=== PATIENT | male | born 1980 | race Caucasian/White ===

== ENCOUNTER 2018-11-27 18:49 | Inpatient (IN) ==
[2018-11-27] MEDS ORDERED: METOCLOPRAMIDE HCL INJ 5 MG/ML 2 ML VIAL IV STA (19:06)
[2018-11-27] MEDS ORDERED: HYDROmorphone INJ 0.5 MG/0.5 ML SYR IV STA ×2 (19:06→20:37)
[2018-11-27] MEDS ORDERED: KETOROLAC TROMETHAMINE 15 MG/ML VIAL IV STA (19:06)
[2018-11-27] MEDS ORDERED: SODIUM CHLORIDE 0.9% 1000ML 1,000 ML IV SCH (19:15)
[2018-11-27 19:24] LABS: Basophils # (auto) 0.09 K/uL (0-0.2); Basophils % (auto) 0.8 %; Eosinophils # (auto) 0.23 K/uL (0-0.5); Eosinophils % (auto) 1.9 %; Hematocrit (blood only) 45.1 % (42-52); Hemoglobin 15.7 g/dL (14.0-18.0); Immature Granulocytes # (auto) 0.03 K/uL (0.00-0.02); Immature Granulocytes % (auto) 0.3 %; Lymphocytes # (auto) 2.44 K/uL (1.2-3.4); Lymphocytes % (auto) 20.6 %; Mean Corpuscular Hgb Conc 34.8 g/dL (32-36); Mean Corpuscular Volume 86.9 fL (80-100); Mean Platelet Volume 9.6 fL (7.4-10.4); Monocytes # (auto) 1.01 K/uL (0.11-0.59); Monocytes % (auto) 8.5 %; Neutrophils # (auto) 8.04 K/uL (1.4-6.5); Neutrophils % (auto) 67.9 %; Platelet Count 269 K/uL (130-400); RDW Coefficient of Variation 13.4 % (11.5-14.5); RDW Standard Deviation 42.6 fL (36.4-46.3); Red Blood Count 5.19 M/uL (4.7-6.1); White Blood Count 11.84 K/uL (4.8-10.8)
[2018-11-27 19:38] LABS: Appearance Urine Cloudy (Clear); Bacteria Urine Automated Negative (Negative); Bilirubin Urine Negative (Negative); Blood Urine 3+ (Negative); Cast Urine Automated 0 /lpf (0-5); Color Urine Orange; Glucose Urine UA Negative (Negative); Ketones Urine Negative (Negative); Leukocyte Esterase Urine Trace (Negative); Nitrite Urine Negative (Negative); Protein Urine Negative (Negative); RBC Urine Automated >30 /hpf (0-4); Specific Gravity Urine 1.024 (1.000-1.030); Urobilinogen Urine Negative (Negative); pH Urine 6.5 (4.5-7.5)
[2018-11-27 19:42] LABS: Albumin Level 4.3 gm/dl (3.4-5.0); Calcium 9.5 mg/dl (8.5-10.1); Creatinine Clr Calc Pharmacy 139.1 ml/min; Est GFR (African American) 93.4; Est GFR (Non-African American) 80.6; Potassium 3.8 mmol/L (3.5-5.1)
[2018-11-27 19:45] LABS: Albumin Globulin Ratio 1.3 (0.9-2); Bilirubin,Total 0.4 mg/dl (0.2-1); Globulin 3.3 gm/dl (2.5-4.0); Total Protein 7.6 gm/dl (6.4-8.2)
[2018-11-27] MEDS ORDERED: IOVERSOL 100ml IV PRN (20:13)
--- NOTE | 2018-11-27 20:23 | CT Scan Report ---
CT OF THE ABDOMEN AND PELVIS WITH CONTRAST CLINICAL HISTORY: Left flank pain. COMPARISON STUDY: CT of the abdomen and pelvis July 15, 2018. Renal ultrasound performed earlier t génesis. TECHNIQUE: Following IV administration of 95 mL of Optiray-320, axial images of the abdomen and pelvi s were obtained from the lung bases to the proximal femurs. Images were reviewed in the axial, sagitt al, and coronal planes. IV contrast was administered without complication. Automated exposure contro l was utilized for the study. A dose lowering technique was utilized adhering to the principles of A REMA. CT DOSE: 1757.41 mGy.cm FINDINGS: Lung bases are clear. A 4 mm proximal left ureteral calculus results in mild left hydroneph rosis. Left nephrogram is delayed. There is left perinephric fluid. No additional urinary calculi are identified. Fatty infiltration of the liver is noted. The spleen, adrenal glands and pancreas are no rmal. There is no biliary or pancreatic ductal dilatation. There is no evidence for a bowel obstructi on. No lymphadenopathy is present. The appendix is normal. No suspicious osseous lesions are present. IMPRESSION: 1. 4 mm proximal left ureteral calculus which results in mild left hydronephrosis with a delayed left nephrogram and perinephric fluid. No additional urinary calculi. 2. Fatty liver. Electronically signed by: Roddy Clark M.D. 11/27/2018 8:21 PM
[2018-11-27] MEDS ORDERED: ACETAMINOPHEN 500 MG TAB PO STA (20:37)
--- NOTE | 2018-11-27 22:01 | Emergency Department Note ---
Entered by Batsheva Abreu acting as a scribe for History of Present Illness General Chief complaint: Kidney Stone Stated complaint: KIDNEY STONES Source: patient Mode of arrival: ambulatory History of Present Illness Onset (ago): hour(s) (16) Location: left (flank) Radiation: abdomen Pain Consistency: + constant Maximum Pain Intensity: 10 Associated symptoms: + denies other symptoms (diarrhea) and + nausea/vomiting (+ nausea, - vomiting) The patient is a 38 year old male who presents to the Emergency Room with compl aints of constant left flank pain that started around 0300 this morning. He notes the pain radiates to his abdomen. He rates his pain a 10/10 in severity. The patient states his pain subsided until about 1600 this afternoon. The patient was seen in the ED earlier this morning. He notes the nausea medication has not given him any relief of his nausea. He reports there is blood in his urine. He denies any diarrhea. He reports a history of kidney stones, but notes this one is worse. Home Medications Home Medications Medication Instructions Recorded Confirmed Type escitalopram oxalate 10 mg PO DAILY 07/15/18 11/27/18 History cefdinir 300 mg PO BID 10 Days #20 cap 11/27/18 11/27/18 Rx ondansetron 4 mg PO Q6H PRN #12 tab 11/27/18 11/27/18 Rx oxycodone 5 - 10 mg PO Q6H #15 tab 11/27/18 11/27/18 Rx tamsulosin [Flomax] 0.4 mg PO DAILY #7 cap 11/27/18 11/27/18 Rx Allergies Allergy/AdvReac Type Severity Reaction Status Date / Time morphine Allergy Unknown REDNESS Verified 11/27/18 03:59 [id number] Allergy Unknown Unknown Uncoded 07/15/18 21:09 Past Med/Surg History Medical History Kidney stone (Resolved) Social History Preferred Language: Nigerien Feels Safe at Home: Yes Smoking Status: Former smoker Review of Systems See HPI for pertinent positives & negatives. and A total of 10 systems reviewed and were otherwise negative Physical Exam Vital Signs Vital Signs - 24 hr 11/27/18 18:58 11/27/18 20:32 Temperature 37.3 C Temperature Source Oral Sepsis Recent Fever Within 48 Hours No Sepsis New/Unexplained Change in Mental Status No Sepsis Action Taken by Nursing No Action Required Pulse Rate 77 Pulse Rate [Right Finger] 74 Respiratory Rate 18 17 Blood Pressure 180/110 H Blood Pressure [Right Arm] 151/91 H Blood Pressure Mean 133 Blood Pressure Mean [Right Arm] 111 Blood Pressure Position Sitting Pulse Oximetry 100 93 Oxygen Delivery Method Room Air GENERAL: Awake, alert, uncomfortable appearing HENT: Normocephalic, atraumatic. Dry lips. EYES: Normal conjunctiva. Sclera non-icteric. NECK: Supple. No nuchal rigidity. RESPIRATORY: Clear to auscultation. No wheezes. Normal respiratory effort. CARDIAC: Normal rate. Normal rhythm. Extremities warm and well perfused. GI: Soft, non-distended. No tenderness to palpation. No rebound or guarding. No masses. RECTAL: Deferred. MUSCULOSKELETAL: Atraumatic. Chest examination reveals no tenderness. Minimal to no left flank tenderness. LOWER EXTREMITIES: Calves are equal size bilaterally and non-tender. No edema NEURO: Normal sensorium. No sensory or motor deficits noted. No facial droop. SKIN: Warm and dry. No rash or jaundice noted. Course 1901: Past medical records reviewed. The patient was evaluated in room B12B. A complete history and physical exam was performed. 2043: I discussed the patient's case with Dr. [facility]. He agrees to evaluate the patient for further management and care. Consultations Consultation #1: [facility] He agrees to evaluate the patient for further management and care. Time: 20:44 Administered Medications Ioversol (Optiray 320 100ml) 95 ml IV ONCE PRN PRN Reason: Interaction Checking Stop: 12/01/18 20:12 Last Admin: 11/27/18 20:14 Dose: 95 ml Documented by: [id number] Discontinued Medications Acetaminophen (Tylenol) 1,000 mg PO NOW STA Stop: 11/27/18 20:38 Last Admin: 11/27/18 21:03 Dose: 1,000 mg Documented by: [id number] Hydromorphone HCl (Dilaudid) 0.5 mg IV NOW STA Stop: 11/27/18 19:07 Last Admin: 11/27/18 19:22 Dose: 0.5 mg Documented by: [id number] Hydromorphone HCl (Dilaudid) 0.5 mg IV NOW STA Stop: 11/27/18 20:38 Last Admin: 11/27/18 21:02 Dose: 0.5 mg Documented by: [id number] Sodium Chloride (Nss 1000ml) 1,000 mls @ 999 mls/hr IV .Q1H1M ARIEL Stop: 11/27/18 20:15 Last Infusion: 11/27/18 20:33 Dose: 0 mls/hr Documented by: [id number] Admin: 11/27/18 19:21 Dose: 999 mls/hr Documented by: [id number] Ketorolac Tromethamine (Toradol) 15 mg IV NOW STA Stop: 11/27/18 19:07 Last Admin: 11/27/18 19:22 Dose: 15 mg Documented by: [id number] Metoclopramide HCl (Reglan) 10 mg IV NOW STA Stop: 11/27/18 19:07 Last Admin: 11/27/18 19:22 Dose: 10 mg Documented by: [id number] Medical Decision Making Differential Diagnosis Etiologies such as appendicitis, diverticulitis, PUD, biliary pathology, UTI, pancreatitis, obstruction, mesenteric ischemia, aortic pathology, infections, inflammatory bowel disease, renal colic, as well as others were entertained. Medical Records Attestation: I reviewed the patient's medical records. Home Medications Current Medication List: was personally reviewed by me Laboratory Data Attestation: I reviewed the patient's lab results. Result diagrams: 11/27/18 19:18 11/27/18 19:18 Lab Results 11/27/18 11/27/18 11/27/18 Range/Units 19:18 19:18 19:18 WBC 11.84 H (4.8-10.8) K/uL RBC 5.19 (4.7-6.1) M/uL Hgb 15.7 (14.0-18.0) g/dL Hct 45.1 (42-52) % MCV 86.9 (80-100) fL MCH 30.3 (25-34) pg MCHC 34.8 (32-36) g/dL RDW Std Deviation 42.6 (36.4-46.3) fL RDW Coeff of Asya 13.4 (11.5-14.5) % Plt Count 269 (130-400) K/uL MPV 9.6 (7.4-10.4) fL Immature Gran % (Auto) 0.3 % Neut % (Auto) 67.9 % Lymph % (Auto) 20.6 % [place] % (Auto) 8.5 % Eos % (Auto) 1.9 % Baso % (Auto) 0.8 % Immature Gran # (Auto) 0.03 H (0.00-0.02) K/uL Neut # (Auto) 8.04 H (1.4-6.5) K/uL Lymph # (Auto) 2.44 (1.2-3.4) K/uL [place] # (Auto) 1.01 H (0.11-0.59) K/uL Eos # (Auto) 0.23 (0-0.5) K/uL Baso # (Auto) 0.09 (0-0.2) K/uL Sodium 140 (136-145) mmol/L Potassium 3.8 (3.5-5.1) mmol/L Chloride 108 H (98-107) mmol/L Carbon Dioxide 25 (21-32) mmol/L Anion Gap 7.0 (3-11) BUN 14 (7-18) mg/dl Creatinine 1.16 (0.6-1.4) mg/dl Est Cr Clr Drug Dosing 139.1 ml/min Est GFR ( Amer) 93.4 Est GFR (Non-Af Amer) 80.6 BUN/Creatinine Ratio 12.0 (10-20) Glucose 112 H (70-99) mg/dl Calcium 9.5 (8.5-10.1) mg/dl Total Bilirubin 0.4 (0.2-1) mg/dl AST 27 (15-37) U/L ALT 69 (12-78) U/L Alkaline Phosphatase 81 (45-117) U/L Total Protein 7.6 (6.4-8.2) gm/dl Albumin 4.3 (3.4-5.0) gm/dl Globulin 3.3 (2.5-4.0) gm/dl Albumin/Globulin Ratio 1.3 (0.9-2) Lipase 151 (73-393) U/L Urine Color [place] Urine Appearance Cloudy A (Clear) Urine pH 6.5 (4.5-7.5) Ur Specific [place] 1.024 (1.000-1.030) Urine Protein Negative (Negative) Urine Glucose (UA) Negative (Negative) Urine Ketones Negative (Negative) Urine Blood 3+ H (Negative) Urine Nitrite Negative (Negative) Urine Bilirubin Negative (Negative) Urine Urobilinogen Negative (Negative) Ur Leukocyte Esterase Trace H (Negative) Urine WBC (Auto) 1-5 (0-5) /hpf Urine RBC (Auto) >30 H (0-4) /hpf U Hyaline Cast (Auto) 0 (0-5) /lpf U Epithel Cells (Auto) 5-10 H (0-5) /lpf Urine Bacteria (Auto) Negative (Negative) Imaging Data Radiologist's Impression: Radiology results as stated below per my review and the radiologist's interpretation: CT OF THE ABDOMEN AND PELVIS WITH CONTRAST CLINICAL HISTORY: Left flank pain. COMPARISON STUDY: CT of the abdomen and pelvis July 15, 2018. Renal ultrasound performed earlier today. TECHNIQUE: Following IV administration of 95 mL of Optiray-320, axial images of the abdomen and pelvis were obtained from the lung bases to the proximal femurs. Images were reviewed in the axial, sagittal, and coronal planes. IV contrast was administered without complication. Automated exposure control was utilized for the study. A dose lowering technique was utilized adhering to the principles of ALARA. CT DOSE: 1757.41 mGy.cm FINDINGS: Lung bases are clear. A 4 mm proximal left ureteral calculus results in mild left hydronephrosis. Left nephrogram is delayed. There is left perinephric fluid. No additional urinary calculi are identified. Fatty infiltration of the liver is noted. The spleen, adrenal glands and pancreas are normal. There is no biliary or pancreatic ductal dilatation. There is no evidence for a bowel obstruction. No lymphadenopathy is present. The appendix is normal. No suspicious osseous lesions are present. IMPRESSION: 1. 4 mm proximal left ureteral calculus which results in mild left hydronephrosis with a delayed left nephrogram and perinephric fluid. No add itional urinary calculi. 2. Fatty liver. Electronically signed by: Roddy Clark M.D. 11/27/2018 8:21 PM Blood Pressure Blood Pressure Findings: Elevated blood pressure Blood Pressure Disposition: further management by hospitalist DANIELA Narrative Patient is a 38-year-old gentleman with a past medical history of kidney stones seen her very early this morning for severe left flank pain. Treated symptomatically with improvement. During the day today was okay until this af ternoon with severe left-sided flank pain returned in the left inguinal area. Denies trauma or fever. Unable to keep anything down very nauseous. Has not vomited. CT scan was completed given his refractory symptoms and repeat laboratory studies. Given hydration, antiemetic and pain control. Want to confirm either kidney stone or other possible pathology. No evidence of hepatitis. No significant evidence of pancreatitis or other acute intra- abdominal pathology. Has not required urological intervention in the past for his stones. No evidence of significant urine infection or pancreatitis again noted on laboratory studies. Leukocyte is 11.[address] scan shows a 4 mm left ureteral stone with mild hydronephrosis. Again no significant evidence of urine infection &patient's symptoms are more controlled. Did discuss with this point options including observation here versus going home with again. Patient was very concerned and states has worsening pain now; given additional dose pain medicine wish to stay for pain control. [facility] hospitalist was contacted. Impression & Plan Kidney stone on left side, Intractable pain Discharge Plan Visit Data Chief Complaint: Kidney Stone Stated Complaint: KIDNEY STONES ED Provider: Farhan Salter Discharge Problem: Kidney stone on left side, Intractable pain Patient Disposition: Being Evaluated by Hospitalist Forms Stand Alone Forms: My [facility] Prescriptions Prescriptions: No Action cefdinir 300 mg capsule 300 mg PO BID 10 Days Qty: 20 RF: 0 ondansetron 4 mg tablet,disintegrating 4 mg PO Q6H PRN (Reason: nausea and vomiting) Qty: 12 RF: 0 oxycodone 5 mg tablet 5 - 10 mg PO Q6H Qty: 15 RF: 0 tamsulosin [Flomax] 0.4 mg capsule 0.4 mg PO DAILY Qty: 7 RF: 0 escitalopram oxalate 10 mg tablet 10 mg PO DAILY RF: 0 Referrals Referrals: Americo Martinez MD [Primary Care Provider] - The scribe's documentation has been prepared under my direction and personally reviewed by me in its entirety. I confirm that the note above accurately refl ects all work, treatment, procedures, and medical decision making performed by me.
[2018-11-27] MEDS ORDERED: ONDANSETRON INJ 2 MG/ML 2 ML VIAL ONE (22:59)
[2018-11-27] MEDS ORDERED: ACETAMINOPHEN 325 MG TAB PO PRN (23:03)
[2018-11-27] MEDS ORDERED: ONDANSETRON INJ 2 MG/ML 2 ML VIAL IV PRN (23:03)
[2018-11-27] MEDS: SODIUM CHLORIDE 0.9% 1000ML 1,000 ML IV SCH (23:27)
[2018-11-27] MEDS: HYDROmorphone INJ 0.5 MG/0.5 ML SYR IV PRN (23:35)
--- NOTE | 2018-11-27 23:41 | History and Physical Report ---
DATE OF ADMISSION: 11/27/2018 CHIEF COMPLAINT: Left flank pain. HISTORY OF PRESENT ILLNESS: This is a 38-year-old male with past medical history significant for blood pressure, situational not on any medications; obesity, sleep apnea on CPAP, depression, attention deficit disorder, history of kidney stones, presents with the left flank pain. The patient has history of kidney stones couple of times in the past and he passed those stones on his own. Today morning around 3:00, he woke up with severe pain in left flank and came to the ER. In the ER, renal ultrasound and KUB was done which was unremarkable and was sent home but patient came back again in the afternoon with severe left flank pain radiating to the groin and also nauseous. A CAT scan was done which showed proximal left ureteral calculus 4 mm plus some perinephric fluid. He received pain medications and he says the pain is still there but nausea is improved with nausea medication. Denies any fevers, chills, has some nasal congestion since he is on CPAP since May 2018 for his sleep apnea. Denies any headaches, no blurred vision, no earache. He has some runny nose. No sore throat, no difficulty swallowing. Appetite is okay, but he is not able to eat today because of pain. No chest pain, no shortness of breath. Normal bowel movements. Has some hematuria and burning micturition. No swelling in the legs. No rash seen. Currently, resting comfortable and hemodynamically stable. ALLERGIES: MORPHINE. PAST MEDICAL HISTORY: As mentioned above. PAST SURGICAL HISTORY: None. MEDICATIONS: On Lexapro 10 mg daily, Omnicef, oxycodone, Flomax. FAMILY HISTORY: Significant for father had diabetes. Mother had diabetes. SOCIAL HISTORY: Single, quit smoking in 2013, smoked 1 pack a day for 11 years. Alcohol occasionally. No drug use. REVIEW OF SYMPTOMS: As per HPI. Rest of the review of systems is negative. PHYSICAL EXAMINATION: GENERAL: The patient is morbidly obese, not in acute distress. VITAL SIGNS: Temperature 37.3, pulse 74, respiratory rate 17, blood pressure 151/91, oxygen 93% room air. HEENT: No pallor, no icterus. Pupils equal, round, and reactive to light. NECK: No JVD, no neck masses, no carotid bruits. CARDIOVASCULAR: S1, S2 heard, regular rate and rhythm, no murmur, no gallop. RESPIRATORY SYSTEM: Normal effort. No accessory muscle use. No wheezing, no crackles. ABDOMEN: Soft, bowel sounds present. Tenderness in left lower quadrant. No guarding, no rigidity. No distention. No flank tenderness. CENTRAL NERVOUS SYSTEM: Cranial nerves II-XII grossly intact, nonfocal. EXTREMITIES: No edema, no erythema. LABORATORY DATA: WBC 11.8, hemoglobin 15.7, hematocrit 45.1, platelets 269. Sodium 140, potassium 3.8, chloride 108, bicarbonate 25, BUN 14, creatinine 1.1, serum glucose 112, calcium 9.5, total bilirubin 0.4, AST of 27, ALT 16, alkaline phosphatase 81, lipase 151. Urinalysis positive for blood and trace leukocyte esterase. CT of abdomen and pelvis shows a 4 mm proximal left ureteral calculus which results in mild left hydronephrosis with delayed nephrogram and perinephric fluid. No additional renal calculi, fatty liver. ASSESSMENT AND PLAN: This 38-year-old male who presents with left renal colic. 1. Left ureteral proximal 4 mm kidney stone with mild hydronephrosis has significant pain, possible urinary tract infection. Continue with IV Rocephin, n.p.o. IV fluids, antiemetics p.r.n. Notified for urology. Closely monitor in the medical floor. Follow the cultures. 2. History of depression, continue Lexapro. 3. History of obstructive sleep apnea. Continue CPAP. 4. History of hypertension, situational. We will monitor. 5. Deep venous thrombosis prophylaxis. SCDs. DISPOSITION: Admit to medical floor. Expect to discharge home and follow with his family doctor. Level 1, full code. MTDD
[2018-11-28] MEDS: OXYCODONE HCL IR 5 MG TAB (IMMEDIATE RELEASE) PO PRN ×4 (01:59→21:50)
[2018-11-28] MEDS: HYDROmorphone INJ 0.5 MG/0.5 ML SYR IV PRN ×5 (02:32→18:48)
[2018-11-28] MEDS ORDERED: cefTRIAXone SODIUM 1,000 MG in DEXTROSE 5% 50 ML IV SCH (06:00)
[2018-11-28] MEDS: SODIUM CHLORIDE 0.9% 1000ML 1,000 ML IV SCH ×3 (06:02→21:50)
[2018-11-28] MEDS: cefTRIAXone SODIUM 2,000 MG in DEXTROSE 5% 50 ML IV SCH (06:03)
[2018-11-28] MEDS: TAMSULOSIN HCL 0.4 MG CAP PO SCH (09:01)
[2018-11-28] MEDS: ESCITALOPRAM OXALATE 10 MG TAB PO SCH (09:01)
--- NOTE | 2018-11-28 10:54 | Hospitalist Progress Note ---
Date of Service November 28, 2018 Assessment & Plan (1) Ureteral colic: Left proximal ureteral stone-will add scheduled Toradol to help him rely less often on the Dilaudid. Also discussed with him how to use PO meds to stay ahead of the pain. He is currently feeling comfortable. Cont IVF and Flomax, allow more time for spontaneous passage of stone. KUB in am and NPO p MN in preparation for procedure in am if needed. Some lleukocyte esterase was present on UA, so he was started on Rocephin. Cont this pending urine culture results. (2) Depression: Lexapro per home regimen. (3) Obesity: (4) DVT prophylaxis: SCDs in setting of upcoming procedure/lower risk Full Dispo-to home in 1-2 days. Sammi Castaneda DO [facility] Hospitalist Subjective 38 yo M admitted for pain control in setting or 4mm proximal left ureteral calculus. He is relying heavily on dilaudid IV for pain control. Denies nausea, vomiting. No other symptoms present. Review of Systems Review of Systems: All systems reviewed & are unremarkable except as noted in HPI & below Physical Exam Physical Exam: CONSTITUTIONAL: morbid obesity, vitals as above, generally well-appearing EYES: normal conjuctivae, no scleral icterus RESPIRATORY: clear to auscultation bilaterally, no crackles, rales or wheezes, normal respiratory effort CARDIOVASCULAR: regular rate and rhythm, S1 and 2 heard without murmurs, pham ps or rubs, no JVD, no peripheral edema GASTROINTESTINAL: normal bowel sounds, soft, TTP in left lower quadrant, nondistended, no CVA tenderness MUSCULOSKELETAL: strength 5/5 throughout, head is normocephalic and atraumatic SKIN: warm and dry NEUROLOGIC: no gross focal deficits. PSYCHIATRIC: alert cooperative and oriented to person, place and time. Results & Data Vital Signs (Past 12 Hours) Vital Signs Temp Pulse Resp BP Pulse Ox 11/28/18 07:08 36.8 C 63 16 118/72 96 11/27/18 23:00 36.7 C 75 18 151/93 H 95 Laboratory Results Short CBC 11/27/18 Range/Units 19:18 WBC 11.84 H (4.8-10.8) K/uL Hgb 15.7 (14.0-18.0) g/dL Hct 45.1 (42-52) % Plt Count 269 (130-400) K/uL BMP 11/27/18 19:18 Sodium 140 Potassium 3.8 Chloride 108 H Carbon Dioxide 25 BUN 14 Creatinine 1.16 Glucose 112 H Calcium 9.5 Liver Function 11/27/18 Range/Units 19:18 Total Bilirubin 0.4 (0.2-1) mg/dl AST 27 (15-37) U/L ALT 69 (12-78) U/L Alkaline Phosphatase 81 (45-117) U/L Albumin 4.3 (3.4-5.0) gm/dl Urine 11/27/18 Range/Units 19:18 Urine Color [place] Urine Appearance Cloudy A (Clear) Urine pH 6.5 (4.5-7.5) Ur Specific [place] 1.024 (1.000-1.030) Urine Protein Negative (Negative) Urine Glucose (UA) Negative (Negative) Medications Administered Current Inpatient Medications Acetaminophen (Tylenol) 650 mg PO Q4H PRN PRN Reason: pain/fever Stop: 12/27/18 23:02 Escitalopram Oxalate (Lexapro) 10 mg PO DAILY [facility] Stop: 12/28/18 08:59 Last Admin: 11/28/18 09:01 Dose: 10 mg Documented by: Hydromorphone HCl (Dilaudid) 0.5 mg IV Q3H PRN PRN Reason: Pain Stop: 12/11/18 23:02 Last Admin: 11/28/18 09:49 Dose: 0.5 mg Documented by: Sodium Chloride (Nss 1000ml) 1,000 mls @ 125 mls/hr IV .Q8H ARIEL Stop: 12/27/18 23:02 Last Infusion: 11/28/18 06:33 Dose: 125 mls/hr Documented by: Ceftriaxone Sodium 2,000 mg/ (Dextrose) 70 mls @ 140 mls/hr IV Q24H ARIEL; Protocol Stop: 12/08/18 05:59 Last Infusion: 11/28/18 06:32 Dose: Infused Documented by: Ondansetron HCl (Zofran) 4 mg IV Q6H PRN PRN Reason: Nausea Stop: 12/27/18 23:02 Last Admin: 11/28/18 08:46 Dose: 4 mg Documented by: Oxycodone HCl (Roxicodone Immediate Rel) 5 - 10 mg PO Q6H PRN PRN Reason: Pain Stop: 12/11/18 23:02 Last Admin: 11/28/18 09:01 Dose: 10 mg Documented by: Tamsulosin HCl (Flomax) 0.4 mg PO DAILY ARIEL Stop: 12/28/18 08:59 Last Admin: 11/28/18 09:01 Dose: 0.4 mg Documented by:
--- NOTE | 2018-11-28 11:34 | Urology Consultation ---
Date of Consultation November 28, 2018 Assessment & Plan (1) Kidney stone on left side: Patient admitted and monitored. Hydrating. Pain is much better controlled. Previously had passed stones on own. NO fevers or concerning issues. Nausea has improved. Has not seen blood. Not seen stone pass. will plan to monitor. Check KUB in am and NPO at midnight just incase. Strain urine and monitor for passage. Call if fevers or chills or sudden changes. History of Present Illness Attending Physician: Gavin Chris MD History of Present Illness Patient admitted with severe pain into groin in waves with nausea and poor appetite. Caused pain in waves with discomfort. NO position of comfort. previously had stones x 2 that passed on own. No major fevers or chills. Pain improved after admitted. Hydrating and tolerating pain now. Allergies Allergy/AdvReac Type Severity Reaction Status Date / Time morphine Allergy Unknown REDNESS Verified 11/27/18 03:59 [id number] Allergy Unknown Unknown Uncoded 07/15/18 21:09 Home Medications Home Medications Medication Instructions Recorded Confirmed Type escitalopram oxalate 10 mg PO DAILY 07/15/18 11/27/18 History cefdinir 300 mg PO BID 10 Days #20 cap 11/27/18 11/27/18 Rx ondansetron 4 mg PO Q6H PRN #12 tab 11/27/18 11/27/18 Rx oxycodone 5 - 10 mg PO Q6H #15 tab 11/27/18 11/27/18 Rx tamsulosin [Flomax] 0.4 mg PO DAILY #7 cap 11/27/18 11/27/18 Rx Patient History Medical History Kidney stone (Resolved) Social History Preferred Language: Chinese Communication Ability: Effective Case Management Specialist Required: No Beliefs That Will Affect Care: None Other Information That Helps Us Care for You: No Feels Safe at Home: Yes Safety Concerns: Feels Safe At This Time Smoking Status: Former smoker Do You Dip or Chew Tobacco: No Smoking End Date: Hx Alcohol Use: Yes Alcohol type: beer Hx Substance Use: No Physical Exam Constitutional: well developed and well nourished; no acute distress Eyes: eyes not dysmorphic ENMT: Ears: no hearing impairment Neck: normal visual inspection and trachea midline Respiratory: normal respiratory effort Cardiovascular: Rate/Rhythm: not tachycardic Gastrointestinal (Abdomen): Inspection/Auscultation: abdomen normal to inspection; abdomen not distended Musculoskeletal: Head/Neck/Chest: + head abnormal to inspection; full ROM of neck Skin: normal turgor; no rashes Neurologic: CN's II-XI intact bilaterally and awake Psychiatric: A+Ox3, euthymic affect Orientation: alert and oriented x 3 Genitourinary: no CVA tenderness Results & Data Vital Signs (Past 12 Hours) Vital Signs Temp Pulse Resp BP Pulse Ox 11/28/18 07:08 36.8 C 63 16 118/72 96
[2018-11-28] MEDS: KETOROLAC 30 MG/ML VIAL IV SCH ×2 (15:31→23:38)
[2018-11-29] MEDS: OXYCODONE HCL IR 5 MG TAB (IMMEDIATE RELEASE) PO PRN ×3 (03:07→16:49)
[2018-11-29] MEDS: cefTRIAXone SODIUM 2,000 MG in DEXTROSE 5% 50 ML IV SCH (05:08)
[2018-11-29] MEDS: SODIUM CHLORIDE 0.9% 1000ML 1,000 ML IV SCH ×3 (05:09→22:41)
[2018-11-29] MEDS: KETOROLAC 30 MG/ML VIAL IV SCH (06:14)
[2018-11-29 07:11] LABS: Hemoglobin 13.1 g/dL (14.0-18.0); Mean Corpuscular Hgb Conc 33.6 g/dL (32-36); Mean Corpuscular Volume 87.8 fL (80-100); Mean Platelet Volume 9.3 fL (7.4-10.4); Platelet Count 180 K/uL (130-400); RDW Coefficient of Variation 13.5 % (11.5-14.5); RDW Standard Deviation 43.4 fL (36.4-46.3); Red Blood Count 4.44 M/uL (4.7-6.1); White Blood Count 7.44 K/uL (4.8-10.8)
--- NOTE | 2018-11-29 07:33 | XRay Report ---
XR KUB/Abdomen 1 view CLINICAL HISTORY: 38 years-old Male presenting with Stone. TECHNIQUE: Single supine view of the abdomen was obtained. COMPARISON: CT from 11/27/2018 and plain radiograph and abdomen from 11/27/2018. FINDINGS: Nonobstructive bowel gas pattern. No gross pneumoperitoneum. The 4 mm proximal left ureteral calculus evident on CT may now project over the distal left ureter. N o additional renal or ureteral calculus is visualized. Osseous structures normal. IMPRESSION: 1. Possible progression of the left ureteral calculus now in the distal left ureter. Attention to th is region on follow-up. No additional radiographically evident renal or ureteral calculus. Electronically signed by: Raghu Rick M.D. 11/29/2018 7:32 AM
[2018-11-29 07:44] LABS: BUN Creatinine Ratio 11.6 (10-20); Calcium 8.2 mg/dl (8.5-10.1); Est GFR (African American) 113.1; Est GFR (Non-African American) 97.6
[2018-11-29] MEDS: ESCITALOPRAM OXALATE 10 MG TAB PO SCH (08:47)
[2018-11-29] MEDS: TAMSULOSIN HCL 0.4 MG CAP PO SCH (08:47)
--- NOTE | 2018-11-29 09:13 | Urology Progress Note ---
Date of Service November 29, 2018 Assessment & Plan (1) Ureteral colic: (2) UTI (urinary tract infection): 38yo M with 4mm distal L ureteral stone. Good progression since admission yesterday - revealed on KUB this AM. Pt also experiencing urgency/frequency, also consistent with distal migration. We discussed options moving forward including observation with MET including tamsulosin, hydration, pain control and time vs tentative ESWL this Thursday. He will likely will pass on his own, however he is agreeable to arranged for ESWL on Thursday in the event he does not pass. Will order CXR and EKG prior to discharge for tentative outpatient procedure. Recommend discontinuing toradol and IV dilaudid - he understands pain must be controlled on PO for discharge. However I do feel the majority of his pain was due to the rapid migration of his stone last night. Will allow for diet, continue IVFs while admitted. Okay to discharge home from perspective with tamsulosin, pain control, antibiotic coverage x7d (ciprofloxacin or bactrim). Please have him report to [facility] at [address] [place] [address] following discharge today for H&P update and surgical scheduling. Thank you for allowing us to participate in the acute care of Mr. Lee. Please reconsult with additional questions, concerns or changes in patient status. Subjective 38yo M with 4mm proximal L ureteral stone. Pt doing well this AM. Nontoxic appearing, VSS stable and afebrile. He did require IV dilaudid at 1900, oxy 10mg at 3am. He is experiencing urgency/frequency this am - consistent with distal migration. KUB also supports this. He is comfortable this AM, able to sleep - wears a nasal CPAP Denies n/v/f/c. Review of Systems Review of Systems: All systems reviewed & are unremarkable except as noted in HPI & below Physical Exam Physical Exam: A&Ox3 RRR abd soft, obese, nontender nasal cpap intact no LE edema Results & Data Vital Signs (Past 12 Hours) Vital Signs Temp Pulse Pulse Resp BP Pulse Ox 11/29/18 07:45 36.9 C 57 L 14 109/72 95 11/28/18 22:42 36.6 C 60 16 114/73 92
--- NOTE | 2018-11-29 10:02 | Hospitalist Progress Note ---
Date of Service November 29, 2018 Assessment & Plan (1) Ureteral colic: Left proximal ureteral stone-Has moved distally per KUB this morning. Despite scheduled Toradol 30 mg IV every 6, he has required oxycodone 10 mg at 3 AM and again later in the morning. Based on pain control requirements, hesitate to discharge him home until this is improved or he spontaneously passes the stone. Will reassess this afternoon. Current urology plan is to perform outpatient lithotripsy on Thursday of this week. Of note patient has oxycodone and Omnicef 300 twice daily from the ER visit earlier this week. (2) Depression: Lexapro per home regimen. (3) Obesity: (4) DVT prophylaxis: SCDs in setting of upcoming procedure/lower risk. Ambulate Full Dispo-To home today pending pain control. Sammi Castaneda DO [facility] Hospitalist Subjective Reports some persistent pain and has required oxycodone twice overnight and this morning. Per urology stone is moving well based on updated KUB done this morning, and lithotripsy is planned as outpatient at the end of the week. Will plan to reassess pain later this afternoon to see if he is able to go home. Review of systems reveals urinary urgency, no dysuria or gross hematuria. He is requesting regular food. Review of Systems Review of Systems: All systems reviewed & are unremarkable except as noted in HPI & below Physical Exam Physical Exam: CONSTITUTIONAL: morbid obesity, vitals as above, generally well-appearing EYES: normal conjunctivae, no scleral icterus RESPIRATORY: clear to auscultation bilaterally, no crackles, rales or wheezes, normal respiratory effort CARDIOVASCULAR: regular rate and rhythm, S1 and 2 heard without murmurs, gallops or rubs, no JVD, no peripheral edema GASTROINTESTINAL: normal bowel sounds, soft, TTP in left lower quadrant, nondistended, no CVA tenderness MUSCULOSKELETAL: strength 5/5 throughout, head is normocephalic and atraumatic SKIN: warm and dry NEUROLOGIC: no gross focal deficits. PSYCHIATRIC: alert cooperative and oriented to person, place and time Results & Data Vital Signs (Past 12 Hours) Vital Signs Temp Pulse Pulse Resp BP Pulse Ox 11/29/18 07:45 36.9 C 57 L 14 109/72 95 11/28/18 22:42 36.6 C 60 16 114/73 92 Laboratory Results Short CBC 11/29/18 Range/Units 06:52 WBC 7.44 (4.8-10.8) K/uL Hgb 13.1 L (14.0-18.0) g/dL Hct 39.0 L (42-52) % Plt Count 180 (130-400) K/uL BMP 11/29/18 06:52 Sodium 140 Potassium 4.0 Chloride 109 H Carbon Dioxide 27 BUN 11 Creatinine 0.99 Glucose 89 Calcium 8.2 L Diagnostic Findings KUB/Abdomen 1 view CLINICAL HISTORY: 38 years-old Male presenting with Stone. TECHNIQUE: Single supine view of the abdomen was obtained. COMPARISON: CT from 11/27/2018 and plain radiograph and abdomen from 11/27/2018. FINDINGS: Nonobstructive bowel gas pattern. No gross pneumoperitoneum. The 4 mm proximal left ureteral calculus evident on CT may now project over the distal left ureter. No additional renal or ureteral calculus is visualized. Osseous structures normal. IMPRESSION: 1. Possible progression of the left ureteral calculus now in the distal left ureter. Attention to this region on follow-up. No additional radiographically evident renal or ureteral calculus. Medications Administered Current Inpatient Medications Acetaminophen (Tylenol) 650 mg PO Q4H PRN PRN Reason: pain/fever Stop: 12/27/18 23:02 Last Admin: 11/28/18 20:28 Dose: 650 mg Documented by: Escitalopram Oxalate (Lexapro) 10 mg PO DAILY [facility] Stop: 12/28/18 08:59 Last Admin: 11/29/18 08:47 Dose: 10 mg Documented by: Hydromorphone HCl (Dilaudid) 0.5 mg IV Q3H PRN PRN Reason: Pain Stop: 12/11/18 23:02 Last Admin: 11/28/18 18:48 Dose: 0.5 mg Documented by: Sodium Chloride (Nss 1000ml) 1,000 mls @ 125 mls/hr IV .Q8H ARIEL Stop: 12/27/18 23:02 Last Infusion: 11/29/18 06:13 Dose: 125 mls/hr Documented by: Ceftriaxone Sodium 2,000 mg/ (Dextrose) 70 mls @ 140 mls/hr IV Q24H ARIEL; Protocol Stop: 12/08/18 05:59 Last Infusion: 11/29/18 05:43 Dose: Infused Documented by: Ondansetron HCl (Zofran) 4 mg IV Q6H PRN PRN Reason: Nausea Stop: 12/27/18 23:02 Last Admin: 11/28/18 08:46 Dose: 4 mg Documented by: Oxycodone HCl (Roxicodone Immediate Rel) 5 - 10 mg PO Q6H PRN PRN Reason: Pain Stop: 12/11/18 23:02 Last Admin: 11/29/18 09:29 Dose: 10 mg Documented by: Tamsulosin HCl (Flomax) 0.4 mg PO DAILY ARIEL Stop: 12/28/18 08:59 Last Admin: 11/29/18 08:47 Dose: 0.4 mg Documented by:
--- NOTE | 2018-11-29 10:43 | XRay Report ---
XR chest 1V portable CLINICAL HISTORY: preop for outpatient procedure preoperative evaluation COMPARISON STUDY: No previous studies for comparison. FINDINGS: The bones soft tissues and hemidiaphragms are normal. The cardiomediastinal silhouette is n ormal. The lungs are clear. The pulmonary vasculature is normal. IMPRESSION: Negative chest. The above report was generated using voice recognition software. It may contain grammatical, syntax or spelling errors. Electronically signed by: Bear Cristobal M.D. 11/29/2018 10:41 AM
[2018-11-29] MEDS: HYDROmorphone INJ 0.5 MG/0.5 ML SYR IV PRN (13:25)
[2018-11-30] MEDS: OXYCODONE HCL IR 5 MG TAB (IMMEDIATE RELEASE) PO PRN ×2 (00:03→14:43)
[2018-11-30] MEDS: SODIUM CHLORIDE 0.9% 1000ML 1,000 ML IV SCH (05:28)
[2018-11-30] MEDS: cefTRIAXone SODIUM 2,000 MG in DEXTROSE 5% 50 ML IV SCH (05:29)
--- NOTE | 2018-11-30 07:46 | Urology Progress Note ---
Date of Service November 30, 2018 Assessment & Plan (1) Kidney stone on left side: 38yo M with 4mm L distal ureteral stone Pain controlled overnight with oxy 10mg at [place] - states it was a 5/10 at that point. Has not passed stone yet - will repeat KUB today. Okay for diet - patient would like to go home today if agreeable by primary team. Still plan for ESWL on Thursday if does not spontaneously pass prior to then - we will arrange by our office. Update: Stone still visible with no change in position from yesterday's imaging. Remains distal ureteral. Thank you for allowing us to participate in the acute care of Mr. Lee. Subjective 38yo M with 4mm L distal ureteral stone Uneventful evening, pain controlled with oxycodone IR. Denies n/v/f/c. Still with urgency and frequency q1-2 hrs. No hematuria or dysuria. Review of Systems Review of Systems: All systems reviewed & are unremarkable except as noted in HPI & below Physical Exam Physical Exam: A&Ox3 RRR abd soft, nontender no LE edema Results & Data Vital Signs (Past 12 Hours) Vital Signs Temp Pulse Resp BP Pulse Ox 11/30/18 07:06 36.3 C L 49 L 16 120/72 96 11/29/18 23:21 36.5 C 56 L 16 131/78 98 Laboratory Results Laboratory Results - last 48 hr 11/29/18 11/29/18 06:52 06:52 WBC 7.44 RBC 4.44 L Hgb 13.1 L Hct 39.0 L MCV 87.8 MCH 29.5 MCHC 33.6 RDW Std Deviation 43.4 RDW Coeff of Asya 13.5 Plt Count 180 MPV 9.3 Sodium 140 Potassium 4.0 Chloride 109 H Carbon Dioxide 27 Anion Gap 4.0 BUN 11 Creatinine 0.99 Est Cr Clr Drug Dosing 163.0 Est GFR ( Amer) 113.1 Est GFR (Non-Af Amer) 97.6 BUN/Creatinine Ratio 11.6 Glucose 89 Calcium 8.2 L
[2018-11-30] MEDS: TAMSULOSIN HCL 0.4 MG CAP PO SCH (07:48)
[2018-11-30] MEDS: ESCITALOPRAM OXALATE 10 MG TAB PO SCH (07:48)
--- NOTE | 2018-11-30 08:41 | XRay Report ---
KUB HISTORY: L distal stone progression COMPARISON: KUB 11/29/2018. FINDINGS: The bowel gas pattern is unremarkable. There are no dilated loops of small bowel to suggest an obstruction. No change in position of the 4 mm distal left ureteral stone. No additional renal o r ureteral calculi identified. No pneumoperitoneum or pneumatosis. IMPRESSION: No change in the 4 mm distal left ureteral stone. Electronically signed by: Teofilo Marino M.D. 11/30/2018 8:39 AM
--- NOTE | 2018-11-30 13:18 | Discharge Summary ---
Date of Service November 30, 2018 Admission HPI Per Admitting Provider This is a 38-year-old male with past medical history significant for blood pressure, situational not on any medications; obesity, sleep apnea on CPAP, depression, attention deficit disorder, history of kidney stones, presents with the left flank pain. The patient has history of kidney stones couple of times in the past and he passed those stones on his own. Today morning around 3:00, he woke up with severe pain in left flank and came to the ER. In the ER, renal ultrasound and KUB was done which was unremarkable and was sent home but patient came back again in the afternoon with severe left flank pain radiating to the groin and also nauseous. A CAT scan was done which showed proximal left ureteral calculus 4 mm plus some perinephric fluid. He received pain medications and he says the pain is still there but nausea is improved with nausea medication. Denies any fevers, chills, has some nasal congestion since he is on CPAP since May 2018 for his sleep apnea. Denies any headaches, no blurred vision, no earache. He has some runny nose. No sore throat, no difficulty swallowing. Appetite is okay, but he is not able to eat today because of pain. No chest pain, no shortness of breath. Normal bowel movements. Has some hematuria and burning micturition. No swelling in the legs. No rash seen. Currently, resting comfortable and hemodynamically stable. Admission Exam Per Admitting Provider PHYSICAL EXAMINATION: GENERAL: The patient is morbidly obese, not in acute distress. VITAL SIGNS: Temperature 37.3, pulse 74, respiratory rate 17, blood pressure 151/91, oxygen 93% room air. HEENT: No pallor, no icterus. Pupils equal, round, and reactive to light. NECK: No JVD, no neck masses, no carotid bruits. CARDIOVASCULAR: S1, S2 heard, regular rate and rhythm, no murmur, no gallop. RESPIRATORY SYSTEM: Normal effort. No accessory muscle use. No wheezing, no crackles. ABDOMEN: Soft, bowel sounds present. Tenderness in left lower quadrant. No guarding, no rigidity. No distention. No flank tenderness. CENTRAL NERVOUS SYSTEM: Cranial nerves II-XII grossly intact, nonfocal. EXTREMITIES: No edema, no erythema. Principal Diagnosis ureteral colic Left ureteral stone Discharge Data Allergies Allergy/AdvReac Type Severity Reaction Status Date / Time morphine Allergy Intermediate REDNESS AT Verified 12/01/18 11:25 SITE FROM INSERTION Consultations 11/27/18 20:41 ED Decision to Admit Stat 11/28/18 08:00 Consult Urology Routine Ordered Studies 11/27/18 19:09 CT abd pelvis IV con only Stat Hospital Course (1) Ureteral colic: (2) Depression: (3) Obesity: 38-year-old man with a history of kidney stones presented with acute left flank pain and was found to have a 4 mm proximal ureteral stone in the left. Some perinephric fluid was present on the CT scan and the patient had pain and nausea. He was admitted to the hospitalist service for IV Rocephin in the setting of possible urinary tract infection in addition to IV fluids, antiemetic s and urology consultation. Urology recommended continued IV fluids and supportive care and a repeat KUB in the morning. The KUB revealed movement of the stone, the patient was appearing nontoxic and stable and it was suggested that he undergo ESWL at the end of the week in the office, which she was agreeable to. He did stay overnight and another night for additional pain control which was not quite controlled with oxycodone. The following day he felt well and was reliably controlled with p.o. medication so was sent home in stable condition with close urology follow-up in the next couple of days. At time of discharge he was still having some left flank pain but this had improved. He was tolerating p.o. and was hemodynamically stable and afebrile. Urine culture revealed no evidence of infection and no further antibiotics were recommended. Total Time Total Time Spent Total Time Spent (In Minutes): 60 Total Time Includes: Examination of the Patient, Discharge Planning, Medication Reconciliation and Communication With Other Providers Discharge Plan Discharge Items Patient Disposition: Home - Self-Care Reason For Visit: KIDNEY STONE Discharge Diagnosis: ureteral colic Left ureteral stone Condition: Good Discharge Goals: Decrease discomfort Activity: Resume your previous activity Non-emergency contact: Primary Care Provider Call non-emergency contact if: you have any medication questions, your symptoms worsen, your pain is not controlled and you have a fever Follow-up/Referrals: Javier Garcia II, DO [Physician] - Americo Martinez MD [Primary Care Provider] - Diet: Regular Addtl Provider Instructions: Please take all medications as instructed on discharge list below. Please follow-up with urology as instructed on Thursday for procedure. Please follow all preoperative instructions. Please strain all urine. You have the following appointment with primary care: 12/10/2018 11:00 AM Bear Bethea MD [facility] [place] It was a pleasure taking care of you! Please call if you have any questions or problems. You can reach a [facility] hospitalist on duty at [facility] 24 hours a day by calling [phone]. Take care of yourself. Sammi Castaneda, DO [place] Hospitalist Prescriptions: Continued ondansetron 4 mg tablet,disintegrating 4 mg PO Q6H PRN (Reason: nausea and vomiting) Qty: 12 RF: 0 tamsulosin [Flomax] 0.4 mg capsule 0.4 mg PO DAILY Qty: 7 RF: 0 escitalopram oxalate 10 mg tablet 10 mg PO QAM RF: 0 Discontinued cefdinir 300 mg capsule 300 mg PO BID 10 Days Qty: 20 RF: 0 No Action oxycodone 5 mg tablet 5 - 10 mg PO Q6H PRN (Reason: Pain) RF: 0 Stand-Alone Forms: My [facility], Work/School Release (Inpt) Petty/Other Patient Handouts: Kidney Stones Risk, Kidney Stones Discharge Orders: Discharge Order (Routine); Ordered 11/30/18 Ordered By: Sammi Castaneda Admission Data Admit Date/Time: 11/27/18 21:42 Attending Provider: Gavin Chris Admit Provider: Sammi Castaneda Primary Care Provider: Americo Martinez Other Providers: Javier Garcia II Service: Surgical Services Other Interventions: Discharge Summary Assessment (RN) Last Done: 11/30/18 15:04 DC Date/Time DO NOT enter until pt leaves facility: 11/30/18 15:17
== END 2018-11-30 15:17 | disposition home or self-care (01) | DRG 694 ==
LOC: ED 18:49 → 3N 21:42
DX: I10 Essential (primary) hypertension; Z79.899 Other long term (current) drug therapy; E66.01 Morbid (severe) obesity due to excess calories; F32.9 Major depressive disorder, single episode, unspecified; G47.33 Obstructive sleep apnea (adult) (pediatric); N13.2 Hydronephrosis with renal and ureteral calculous obstruction; Z68.41 Body mass index [BMI] 40.0-44.9, adult